=== PATIENT | female | born 1965 | race Hispanic/Latino ===

== ENCOUNTER 2020-11-08 14:41 | Inpatient (IN) | payer MEDICAID, OTHER ==
[2020-11-08] MEDS ORDERED: methylPREDNISolone Sod Succinate 125 MG/2 ML INJ IV ONE (17:02)
[2020-11-08] MEDS ORDERED: IPRATROPIUM/ALBUTEROL SULFATE 3 ML AMPUL.NEB IH ONE ×2 (17:02→22:09)
--- NOTE | 2020-11-08 17:06 | Event Note ---
ED Screening Note Date of service: 11/08/20 Time: 17:04 ED Screening Note: 55-year-old female with a past medical history of COPD presents to the ER today with complaints of increased shortness of breath for the past 3 to 4 days. She reports associated cough, wheezing, low-grade fever of 99.5, rhinorrhea, nasal congestion, sore throat, wheezing and chest tightness. She also complains of a rash to her lower abdomen and buttocks area which she noticed a few days ago and has been pruritic in nature. She admits that she used to be on oxygen but has been on oxygen in the past 5 to 6 years due to her noncompliance with follow-up and a history of drug abuse she has been in longterm. She has also been out of her inhalers and nebulizer treatments for of about 2 years She is currently in rehab for her drug abuse. Drug of choice was crack. She is recommending that we do not give her any narcotics or addictive medications during her visit. This initial assessment/diagnostic orders/clinical plan/treatment(s) is/are subject to change based on patients health status, clinical progression and re- assessment by fellow clinical providers in the ED. Further treatment and workup at subsequent clinical providers discretion. Patient/guardian urged not to elope from the ED as their condition may be serious if not clinically assessed and managed. Initial orders include: Dyspnea order set including nebulizer treatment and Solu-Medrol
[2020-11-08 17:36] LABS: Basophils # (Auto) 0.1 K/mm3 (0.0-0.1); Basophils % (Auto) 0.8 % (0.0-1.8); Eosinophils # (Auto) 0.2 K/mm3 (0.0-0.4); Eosinophils % (Auto) 1.8 % (0.0-4.3); Hematocrit 46.9 % (30.3-42.9); Lymphocytes # (Auto) 1.8 K/mm3 (1.2-5.4); Lymphocytes % (Auto) 18.6 % (13.4-35.0); Mean Corpuscular HGB Conc 34 % (30-34); Mean Corpuscular Volume 94 fl (79-97); Monocytes % (Auto) 10.8 % (0.0-7.3); Platelet Count 175 K/mm3 (140-440); Red Blood Count 5.02 M/mm3 (3.65-5.03); Red Cell Distribution Width 13.2 % (13.2-15.2)
--- NOTE | 2020-11-08 17:36 | XRay Report ---
CHEST 1 VIEW 11/08/2020 5:22 PM INDICATION / CLINICAL INFORMATION: Dyspnea. COMPARISON: 08/18/2019 FINDINGS: SUPPORT DEVICES: None. HEART / MEDIASTINUM: Stable. LUNGS / PLEURA: No significant pulmonary or pleural abnormality. No pneumothorax. ADDITIONAL FINDINGS: No significant additional findings. IMPRESSION: 1. No acute findings. Signer Name: Gamal Temple MD Signed: 11/08/2020 5:32 PM Workstation Name: [id number]
[2020-11-08 17:48] LABS: INR 0.93 (0.87-1.13)
[2020-11-08 17:49] LABS: Partial Thromboplastin Time 28.1 Sec. (24.2-36.6)
[2020-11-08 17:59] LABS: Alanine Aminotransferase 10 units/L (7-56); Albumin 3.9 g/dL (3.9-5); BUN/Creatinine Ratio 16; Blood Urea Nitrogen 14 mg/dL (7-17); Calcium 9.1 mg/dL (8.4-10.2); Hemolysis Index 29
[2020-11-08] MEDS ORDERED: MAGNESIUM SULFATE 2 GM/50 ML BAG IV ONE (21:54)
--- NOTE | 2020-11-08 21:58 | Emergency Department Report ---
ED Shortness of Breath HPI - General Chief Complaint: Dyspnea/Respdistress Stated Complaint: TROUBLE BREATHING/COUGH/FEVER/RASH Time Seen by Provider: 11/08/20 21:52 Source: patient Mode of arrival: Ambulatory Limitations: No Limitations - History of Present Illness Initial Comments: Patient is a 55-year-old female that presents emergency room with complaints of difficulty breathing, shortness of breath, cough, fever. Patient states that she has been going on for 1 week. Patient states her symptoms are worsening. Patient states she has history of asthma and COPD and she not take anything for it. Patient states that she also has a rash on her abdomen has been going on for 1 week. Patient states the rash itches. Patient denies pain in her ab domen. Patient denies chest pain. MD Complaint: shortness of breath, cough -: Sudden, days(s) Severity: severe Improves With: rest Worsens With: exertion Known History Of: COPD, asthma Context: medication noncompliance Associated Symptoms: fever, cough Treatments Prior to Arrival: none - Related Data Home Oxygen Therapy: No Home Medications Medication Instructions Recorded Confirmed Last Taken Baclofen 20 mg PO Q8H PRN 09/13/13 09/13/13 Unknown Citalopram [Celexa] 20 mg PO DAILY 09/13/13 09/13/13 Unknown Pregabalin [Lyrica] 150 mg PO BID 09/13/13 09/13/13 Unknown traMADoL [Ultram 50 MG tab] 50 mg PO Q8H PRN 09/13/13 09/13/13 Unknown Previous Rx's Medication Instructions Recorded Last Taken Type Naproxen [Naprosyn] 500 mg PO BID PRN 5 Days #10 tablet 12/25/19 Unknown Rx methOCARBAMOL [Robaxin TAB] 1,500 mg PO Q8H PRN #22 tablet 12/25/19 Unknown Rx Allergies Allergy/AdvReac Type Severity Reaction Status Date / Time steroids AdvReac Unknown Uncoded 09/13/13 14:28 ED Review of Systems ROS: Stated complaint: TROUBLE BREATHING/COUGH/FEVER/RASH Other details as noted in HPI Constitutional: fever. denies: chills Eyes: denies: eye pain, eye discharge, vision change ENT: denies: ear pain, throat pain Respiratory: cough, shortness of breath, SOB with exertion, SOB at rest. denies: wheezing Cardiovascular: denies: chest pain, palpitations Endocrine: no symptoms reported Gastrointestinal: denies: abdominal pain, nausea, diarrhea Genitourinary: denies: urgency, dysuria, discharge Musculoskeletal: denies: back pain, joint swelling, arthralgia Skin: as per HPI, rash. denies: lesions Neurological: denies: headache, weakness, paresthesias Psychiatric: denies: anxiety, depression Hematological/Lymphatic: denies: easy bleeding, easy bruising ED Past Medical Hx - Past Medical History Previous Medical History?: Yes Hx Psychiatric Treatment: Yes (Depresssion) Hx Asthma: Yes Hx COPD: Yes Additional medical history: Chrons. ulcerative colitis. Hep B. neuropathy - Surgical History Past Surgical History?: Yes Hx Appendectomy: Yes Additional Surgical History: hysterectomy. tonsillectomy. Cervical fusion - Social History Smoking Status: Current Every Day Smoker Substance Use Type: None - Medications Home Medications: Home Medications Medication Instructions Recorded Confirmed Last Taken Type Baclofen 20 mg PO Q8H PRN 09/13/13 09/13/13 Unknown History Citalopram [Celexa] 20 mg PO DAILY 09/13/13 09/13/13 Unknown History Pregabalin [Lyrica] 150 mg PO BID 09/13/13 09/13/13 Unknown History traMADoL [Ultram 50 MG tab] 50 mg PO Q8H PRN 09/13/13 09/13/13 Unknown History Naproxen [Naprosyn] 500 mg PO BID PRN 5 Days #10 tablet 12/25/19 Unknown Rx methOCARBAMOL [Robaxin TAB] 1,500 mg PO Q8H PRN #22 tablet 12/25/19 Unknown Rx ED Physical Exam - General Limitations: No Limitations General appearance: alert, in distress - Head Head exam: Present: atraumatic, normocephalic - Eye Eye exam: Present: normal appearance, PERRL Pupils: Present: normal accommodation - ENT ENT exam: Present: mucous membranes dry - Neck Neck exam: Present: normal inspection - Respiratory Respiratory exam: Present: respiratory distress, wheezes, accessory muscle use - Cardiovascular Cardiovascular Exam: Present: regular rate, normal rhythm. Absent: systolic murmur, diastolic murmur, rubs, gallop - GI/Abdominal GI/Abdominal exam: Present: soft, normal bowel sounds - Extremities Exam Extremities exam: Present: normal inspection - Back Exam Back exam: Present: normal inspection - Neurological Exam Neurological exam: Present: alert, oriented X3 - Psychiatric Psychiatric exam: Present: normal affect, normal mood - Skin Skin exam: Present: warm, dry, intact, normal color. Absent: rash ED Course Vital Signs 11/08/20 11/08/20 11/08/20 14:56 22:13 22:37 Temperature 99.4 F Pulse Rate 86 Pulse Rate [ 80 Bilateral Throughout] Respiratory 30 H 18 Rate Respiratory 20 Rate [Bilateral Throughout] Blood Pressure Blood Pressure 111/70 [Right] O2 Sat by Pulse 95 Oximetry 11/08/20 11/08/20 11/08/20 22:50 23:00 23:16 Temperature Pulse Rate Pulse Rate [ Bilateral Throughout] Respiratory Rate Respiratory Rate [Bilateral Throughout] Blood Pressure 101/61 109/63 109/63 Blood Pressure [Right] O2 Sat by Pulse 88 83 L Oximetry 11/08/20 23:30 Temperature Pulse Rate Pulse Rate [ Bilateral Throughout] Respiratory Rate Respiratory Rate [Bilateral Throughout] Blood Pressure 109/63 Blood Pressure [Right] O2 Sat by Pulse 85 Oximetry - Reevaluation(s) Reevaluation #1: Patient states she is feeling a little bit better. Patient's work to breathe hernadez s decreased slightly. Patient's oxygen is 83 percent on room air. Patient placed on oxygen. After oxygen placed patient's oxygen improved to 96%. Patient is on 5 L. 11/08/20 22:11 Reevaluation #2: I discussed all results with patient. I discussed plan of care with patient. Patient agrees with plan of care and admission. Patient to be admitted to the hospitalist service. 11/09/20 00:08 ED Medical Decision Making - Lab Data Result diagrams: 11/08/20 17:04 11/08/20 17:04 - EKG Data -: EKG Interpreted by Me EKG shows normal: sinus rhythm, axis, intervals, QRS complexes, ST-T waves Rate: normal - Radiology Data Radiology results: report reviewed, image reviewed interpreted by me: Chest x-ray: No pneumonia, no pneumothorax, no foreign body, no osseous findings, no acute findings CTA CHEST WITH IV CONTRAST INDICATION: Shortness of breath TECHNIQUE: Axial CT images were obtained through the chest after injection of IV contrast. Coronal oblique 2- D reconstruction images were produced. 3 plane MIP reconstruction images were produced at an independent workstation. All CTs at this facility utilize dose reduction techniques including automated exposure control, iterative reconstruction and weight based dosing when appropriate to reduce patient radiation dose to as low as reasonable achievable. COMPARISON: Chest radiograph, 11/08/2020. No prior cross-sectional imaging is available for comparison FINDINGS: No filling defects are visualized within the central or segmental pulmonary arteries to suggest pulmonary embolism. The heart is normal in size. The thoracic aorta is normal in caliber. Evaluation of the lung parenchyma demonstrates a spiculated mass in the right upper lobe measuring 1.6 x 1.4 cm. A similar smaller spiculated density is seen within the left upper lobe measuring 0.8 x 0.9 cm. There is a background of diffuse emphysematous change. Limited imaging of the upper abdomen demonstrates No evidence of acute abnormality. Bones and soft tissues: Evaluation of bony structures demonstrates a 9 mm sclerotic lesion within the left scapula. There are moderate multilevel degenerative changes throughout the thoracic spine. IMPRESSION: 1. Spiculated mass within the right upper lobe and smaller spiculated density within the left upper lobe. Findings are concerning for bronchogenic neoplasm. 2. Sclerotic lesion within the left scapula is nonspecific but could represent metastasis given the patient's suspicious lung mass. 3. No evidence of pulmonary embolism. 4. Emphysema. CHEST 1 VIEW 11/08/2020 5:22 PM INDICATION / CLINICAL INFORMATION: Dyspnea. COMPARISON: 08/18/2019 FINDINGS: SUPPORT DEVICES: None. HEART / MEDIASTINUM: Stable. LUNGS / PLEURA: No significant pulmonary or pleural abnormality. No pneumothorax. ADDITIONAL FINDINGS: No significant additional findings. IMPRESSION: 1. No acute findings. - Medical Decision Making Patient is a 55-year-old female who presents emergency room with complaints of shortness of breath, cough and fever. Patient's found to have increased work of breathing respiratory distress plan initial evaluation. Patient given medications to include Solu-Medrol, Decadron and mag. Patient continued to have low oxygen even after treatment. Patient was then placed on 5 L of oxygen and her O2 sat improved. Patient had a chest x-ray which was negative for acute finding. I personally reviewed the chest x-ray patient had a EKG which shows normal ST and no acute findings. I personally reviewed EKG. Patient had a CTA to rule out PE and it shows lung masses and no other acute findings. Patient had labs done which were essentially unremarkable. Patient admitted to the [facility] service for further evaluation treatment. Critical care time documented due to the multiple reassessments, prolonged time at the bedside, interpretation of diagnostics and labs. - Differential Diagnosis COPD exacerbation, hypoxia, shortness of breath, Covid, pneumonia, PE Critical Care Time: Yes Critical care time in (mins) excluding proc time.: 35 Critical care attestation.: If time is entered above; I have spent that time in minutes in the direct care of this critically ill patient, excluding procedure time. Critical Care Time: 35 minutes ED Disposition Clinical Impression: SOB (shortness of breath), COPD exacerbation, Lung mass Respiratory failure Qualifiers: Chronicity: acute Respiratory failure complication: hypoxia Qualified Code(s): J96.01 - Acute respiratory failure with hypoxia Fever Qualifiers: Fever type: unspecified Qualified Code(s): R50.9 - Fever, unspecified Disposition: 09 OP ADMIT IP TO THIS HOSP Is pt being admited?: Yes Does the pt Need Aspirin: No Condition: Critical Instructions: Chronic Obstructive Pulmonary Disease (ED) Time of Disposition: 00:09
--- NOTE | 2020-11-08 23:23 | Cat Scan Report ---
CTA CHEST WITH IV CONTRAST INDICATION: Shortness of breath TECHNIQUE: Axial CT images were obtained through the chest after injection of IV contrast. Coronal oblique 2-D reconstruction images were produced. 3 plane MIP reconstruction images were produced at an [employer] workstation. All CTs at this facility utilize dose reduction techniques including automated expos ure control, iterative reconstruction and weight based dosing when appropriate to reduce patient radi ation dose to as low as reasonable achievable. COMPARISON: Chest radiograph, 11/08/2020. No prior cross-sectional imaging is available for comparison FINDINGS: No filling defects are visualized within the central or segmental pulmonary arteries to suggest pulmo nary embolism. The heart is normal in size. The thoracic aorta is normal in caliber. Evaluation of the lung parenchyma demonstrates a spiculated mass in the right upper lobe measuring 1. 6 x 1.4 cm. A similar smaller spiculated density is seen within the left upper lobe measuring 0.8 x 0 .9 cm. There is a background of diffuse emphysematous change. Limited imaging of the upper abdomen demonstrates No evidence of acute abnormality. Bones and soft tissues: Evaluation of bony structures demonstrates a 9 mm sclerotic lesion within the left scapula. There are moderate multilevel degenerative changes throughout the thoracic spine. IMPRESSION: 1. Spiculated mass within the right upper lobe and smaller spiculated density within the left upper lobe. Findings are concerning for bronchogenic neoplasm. 2. Sclerotic lesion within the left scapula is nonspecific but could represent metastasis given the p atient's suspicious lung mass. 3. No evidence of pulmonary embolism. 4. Emphysema. Signer Name: Catherine Treviño MD Signed: 11/08/2020 11:19 PM Workstation Name: [id number]
--- NOTE | 2020-11-09 01:17 | History and Physical Report ---
History of Present Illness Date of examination: 11/09/20 Date of admission: 11/09/20 00:11 Chief complaint: shortness of breath History of present illness: Patient is a 55-year-old female that presents emergency room with complaints of difficulty breathing, shortness of breath, cough, fever. Patient states that she has been going on for 1 week. Patient states her symptoms are worsening. Patient states she has history of asthma and COPD and she not take anything for it. Patient states that she also has a rash on her abdomen has been going on for 1 week. Patient states the rash itches. Patient denies pain in her abdomen. Patient denies chest pain. ED work-up shows WBC 9.5 hemoglobin 16.0 platelets is 175, sodium is 138, potassium is 5.5, D-dimer is 45.04, creatinine is 0.9. Chest x-ray done no acute finding. Due to elevated D-dimer CT of the chest donenegative for pulmonary embolism per report showed emphysema and lung mass within the right up per lobe and small spiculated density within the left upper lobe finding concerning for bronchogenic neoplasm. Patient seen at bedside in the ED. She is alert oriented x3. She is on oxygen per nasal cannula. She reported mild shortness of breath. She admits tobacco use 1 pack daily. Discussed tobacco use cessation. Patient voiced understanding. Reviewed lab medication record and vital signs. Will consult oven baker. Past History Past Medical History: COPD Past Surgical History: appendectomy, hysterectomy, tonsillectomy Social history: smoking Family history: no significant family history Medications and Allergies Allergies Allergy/AdvReac Type Severity Reaction Status Date / Time steroids AdvReac Unknown Uncoded 09/13/13 14:28 Home Medications Medication Instructions Recorded Confirmed Last Taken Type Baclofen 20 mg PO Q8H PRN 09/13/13 11/09/20 Unknown History Citalopram [Celexa] 20 mg PO DAILY 09/13/13 11/09/20 Unknown History Pregabalin [Lyrica] 150 mg PO BID 09/13/13 11/09/20 Unknown History traMADoL [Ultram 50 MG tab] 50 mg PO Q8H PRN 09/13/13 11/09/20 Unknown History Naproxen [Naprosyn] 500 mg PO BID PRN 5 Days #10 tablet 12/25/19 11/09/20 Unknown Rx methOCARBAMOL [Robaxin TAB] 1,500 mg PO Q8H PRN #22 tablet 12/25/19 11/09/20 Unknown Rx Review of Systems Ears, nose, mouth and throat: no epistaxis, no bleeding gums Respiratory: cough, shortness of breath Gastrointestinal: no melena Rectal: no itching, no hemorrhoids Musculoskeletal: no hot joints Integumentary: no rash, no pruritis Psychiatric: anxiety, depression Hematologic/Lymphatic: no easy bruising, no easy bleeding Allergic/Immunologic: no urticaria Exam - Constitutional Vitals: Temp Pulse Resp BP Pulse Ox 99.4 F 80 18 109/63 85 11/08/20 14:56 11/08/20 22:13 11/08/20 22:37 11/08/20 23:30 11/08/20 23:30 General appearance: Present: mild distress, well-nourished - EENT Eyes: Present: PERRL ENT: hearing intact, clear oral mucosa - Neck Neck: Present: supple, normal ROM - Respiratory Respiratory effort: normal Respiratory: bilateral: CTA - Cardiovascular Heart Sounds: Present: S1 & S2. Absent: rub, click - Extremities Extremities: pulses symmetrical, No edema Peripheral Pulses: within normal limits - Abdominal General gastrointestinal: Present: soft, non-tender, non-distended, normal bowel sounds Female genitourinary: Present: normal - Integumentary Integumentary: Present: clear, warm, dry - Musculoskeletal Musculoskeletal: gait normal, strength equal bilaterally - Psychiatric Psychiatric: appropriate mood/affect, intact judgment & insight, cooperative - Neurologic Neurologic: CNII-XII intact, moves all extremities HEART Score - HEART Score Troponin: Troponin T < 0.010 ng/mL (0.00-0.029) 11/08/20 22:53 Results - Labs CBC & Chem 7: 11/08/20 17:04 11/09/20 01:55 Labs: Abnormal lab results 11/08/20 11/08/20 Range/Units 17:04 17:04 Hgb 16.0 H (10.1-14.3) gm/dl Hct 46.9 H (30.3-42.9) % [place] % (Auto) 10.8 H (0.0-7.3) % [place] # (Auto) 1.0 H (0.0-0.8) K/mm3 Potassium 5.5 H (3.6-5.0) mmol/L Assessment and Plan - Patient Problems (1) COPD exacerbation Current Visit: Yes Status: Acute Plan to address problem: Continue respiratory care Bronchodilator and oxygen supplement Rules Examiner consulted (2) Lung mass Current Visit: Yes Status: Acute Plan to address problem: Lung mass appreciated on CT of the chest Rules Examiner consults Monitor ABG and oxygen supplement (3) Respiratory failure with hypoxia Current Visit: Yes Status: Acute Plan to address problem: Hypoxia likely secondary to emphysema lung mass Continue oxygen supplements (4) Tobacco abuse Current Visit: Yes Status: Acute Plan to address problem: Patient admits tobacco use 1 pack daily discussed tobacco use cessation (5) Elevated d-dimer Current Visit: Yes Status: Acute Plan to address problem: CT of the chest is negative for PE Bilateral leg ultrasound ordered (6) DVT prophylaxis Current Visit: Yes Status: Acute Plan to address problem: Subcutaneous Lovenox
[2020-11-09 02:50] LABS: C-Reactive Protein 2.4 mg/dL (0.00-1.30)
[2020-11-09] MEDS ORDERED: MAGNESIUM HYDROXIDE (MOM) ORAL LIQD UDC PO PRN (06:34)
[2020-11-09] MEDS ORDERED: SENNOSIDES 8.6 MG TAB PO PRN (06:34)
[2020-11-09] MEDS ORDERED: ACETAMINOPHEN 325 MG TAB PO PRN (06:34)
[2020-11-09] MEDS ORDERED: ONDANSETRON 4 MG/2 ML INJ IV PRN (06:34)
[2020-11-09] MEDS ORDERED: ALUM-MAG HYDROXIDE-SIMETHICONE 200-200-20MG/5ML ORAL LIQD 30 ML PO PRN (06:34)
[2020-11-09] MEDS ORDERED: SODIUM POLYSTYRENE 15 GM/60 ML ORAL LIQD PO ONE (07:43)
[2020-11-09] MEDS: FAMOTIDINE 20 MG/2 ML INJ IV SCH ×2 (10:20→21:49)
[2020-11-09] MEDS: ENOXAPARIN 40 MG/0.4 ML INJ SUB-Q SCH (10:20)
--- NOTE | 2020-11-09 11:07 | Vascular Lab Report ---
DUPLEX DOPPLER LOWER EXTREMITY VEINS, BILATERAL INDICATION / CLINICAL INFORMATION: r/o dvt. TECHNIQUE: Duplex doppler imaging was performed through the veins of both lower extremities using venous julia aminah and other maneuvers. COMPARISON: None available. FINDINGS: RIGHT COMMON FEMORAL VEIN: Negative. RIGHT FEMORAL VEIN: Negative. RIGHT POPLITEAL VEIN: Negative. RIGHT CALF VEINS: Negative. LEFT COMMON FEMORAL VEIN: Negative. LEFT FEMORAL VEIN: Negative. LEFT POPLITEAL VEIN: Negative. LEFT CALF VEINS: Negative. ADDITIONAL FINDINGS: None. IMPRESSION: 1. No sonographic evidence for DVT in either lower extremity. Signer Name: Gamal Temple MD Signed: 11/09/2020 11:03 AM Workstation Name: [id number]
--- NOTE | 2020-11-09 14:18 | Event Note ---
Date: 11/09/20 This is the second visit after midnight Patient seen and examined Vitals noted and stable Patient does complains of shortness of breath but denies any chest pain Coarse breath sounds auscultated bilaterally, S1-S2 positive, bowel sounds positive, no leg edema 55-year-old female admitted to the hospital for shortness of breath due to COPD exacerbation and possible right lung carcinoma Continue empiric antibiotic, empiric steroid, scheduled nebulizer breathing treatment Consulted pulmonary, patient may need lung biopsy Continue current management and plan and follow pulmonary recommendation --It took me about 28 minutes to reevaluate and reasses this patient, discussed with RN/CM, review medical documents, lab results, imaging, medication list and placing order.
--- NOTE | 2020-11-09 14:27 | Consultation ---
History of Present Illness - Reason for Consult Consult date: 11/09/20 COVID-19 PUI Requesting physician: LETY VALIENTE III - History of Present Illness The patient is a 54-year-old female with COPD admitted with shortness of breath, cough for 1 week. She was noted to be hypoxic on admission. Labs revealed no leukocytosis, D-dimer 1245, ferritin 50.4, CRP 2.4, procalcitonin 0.08. COVID- 19 test is pending. She is admitted as PUI. DVT scan negative. CT chest with spiculated mass in right upper lobe and smaller spiculated density in left upper lobe suggestive of possible neoplasm. No evidence of obvious pneumonia. Review of Systems: reviewed in the chart, unable to obtain, minimize risk of transmission Past History Past Medical History: COPD Past Surgical History: appendectomy, hysterectomy, tonsillectomy Social history: smoking Family history: no significant family history Medications and Allergies Allergies Allergy/AdvReac Type Severity Reaction Status Date / Time steroids AdvReac Unknown Uncoded 09/13/13 14:28 Home Medications Medication Instructions Recorded Confirmed Last Taken Type Baclofen 20 mg PO Q8H PRN 09/13/13 11/09/20 Unknown History Citalopram [Celexa] 20 mg PO DAILY 09/13/13 11/09/20 Unknown History Pregabalin [Lyrica] 150 mg PO BID 09/13/13 11/09/20 Unknown History traMADoL [Ultram 50 MG tab] 50 mg PO Q8H PRN 09/13/13 11/09/20 Unknown History Naproxen [Naprosyn] 500 mg PO BID PRN 5 Days #10 tablet 12/25/19 11/09/20 Unknown Rx methOCARBAMOL [Robaxin TAB] 1,500 mg PO Q8H PRN #22 tablet 12/25/19 11/09/20 Unknown Rx Active Meds: Active Medications Acetaminophen (Acetaminophen 325 Mg Tab) 650 mg PO Q4H PRN PRN Reason: Pain MILD(1-3)/Fever >100.5/PADILLA Al Hydrox/Mg Hydrox/Simethicone (Alum-Mag Hydroxide-Simethicone [phone]/5ml Oral Liqd 30 Ml) 30 ml PO Q4H PRN PRN Reason: Indigestion Enoxaparin Sodium (Enoxaparin 40 Mg/0.4 Ml Inj) 40 mg SUB-Q DAILY [facility]; Protocol Last Admin: 11/09/20 10:20 Dose: 40 mg Documented by: Famotidine (Famotidine 20 Mg/2 Ml Inj) 20 mg IV BID [facility] Last Admin: 11/09/20 10:20 Dose: 20 mg Documented by: Magnesium Hydroxide (Magnesium Hydroxide (Mom) Oral Liqd Udc) 30 ml PO Q4H PRN PRN Reason: Constipation Ondansetron HCl (Ondansetron 4 Mg/2 Ml Inj) 4 mg IV Q8H PRN PRN Reason: Nausea And Vomiting Senna (Sennosides 8.6 Mg Tab) 8.6 mg PO Q12HR PRN PRN Reason: Constipation Sodium Chloride (Sodium Chloride 0.9% 10 Ml Flush Syringe) 10 ml IV BID [facility] Last Admin: 11/09/20 10:20 Dose: 10 ml Documented by: Sodium Chloride (Sodium Chloride 0.9% 10 Ml Flush Syringe) 10 ml IV PRN PRN PRN Reason: LINE FLUSH Physical Examination - Physical Exam Narrative exam: Physical Exam (reviewed in chart to minimize risk of transmission) Constitutional: deferred Head, Ears, Nose: deferred Eyes: deferred Neck: deferred Oral: deferred Cardiovascular: deferred Respiratory: deferred GI: deferred Musculoskeletal: deferred Skin: deferred Hem/Lymphatic: deferred Psych: deferred Neurological: deferred - Constitutional Vitals: Vital Signs Temp Pulse Resp BP Pulse Ox 98.5 F 68 22 106/68 96 11/09/20 12:37 11/09/20 12:37 11/09/20 12:37 11/09/20 12:37 11/09/20 12:37 Temperature -Last 24 Hours Temperature 98.5 F Temperature 98.2 F Temperature 99.4 F Results - Labs CBC & Chem 7: 11/08/20 17:04 11/09/20 01:55 Labs: Abnormal lab results 11/08/20 11/08/20 11/09/20 Range/Units 17:04 17:04 01:55 Hgb 16.0 H (10.1-14.3) gm/dl Hct 46.9 H (30.3-42.9) % [place] % (Auto) 10.8 H (0.0-7.3) % [place] # (Auto) 1.0 H (0.0-0.8) K/mm3 D-Dimer 1245.04 H (0-234) ng/mlDDU Potassium 5.5 H (3.6-5.0) mmol/L Glucose (65-100) mg/dL C-Reactive Protein (0.00-1.30) mg/dL 11/09/20 Range/Units 01:55 Hgb (10.1-14.3) gm/dl Hct (30.3-42.9) % [place] % (Auto) (0.0-7.3) % [place] # (Auto) (0.0-0.8) K/mm3 D-Dimer (0-234) ng/mlDDU Potassium (3.6-5.0) mmol/L Glucose 177 H (65-100) mg/dL C-Reactive Protein 2.40 H (0.00-1.30) mg/dL - Imaging and Cardiology Chest x-ray: report reviewed, image reviewed (no pneumonia seen.) Assessment and Plan Cultures: SARS CoV2 PCR: Pending A/P: 54-year-old female with COPD admitted with shortness of breath, cough for 1 week: #COVID-19 PUI: Pending. Inflammatory markers are not elevated. CXR without pneumonia. #Acute hypoxic respiratory failure #COPD #Spiculated lung lesion: Evaluation per primary team Recs: Follow-up COVID-19 PCR. Suspicion is low. Procalcitonin is low, antibiotics not needed Work-up for lung lesion per primary/pulmonary Marine Dobson MD, FACP [facility] ([facility] O: [phone] F: [phone]
--- NOTE | 2020-11-09 18:58 | Consultation ---
History of Present Illness Consult date: 11/09/20 Requesting physician: TIFFANIE AMBROSE Reason for consult: dyspnea History of present illness: 55 yo admitted w/ increased SOB, wheezing, cough with white sputum. No fevers, chills, chest pain, hemoptysis. Active Medications Acetaminophen (Acetaminophen 325 Mg Tab) 650 mg PO Q4H PRN PRN Reason: Pain MILD(1-3)/Fever >100.5/[place] Al Hydrox/Mg Hydrox/Simethicone (Alum-Mag Hydroxide-Simethicone [phone]/5ml Oral Liqd 30 Ml) 30 ml PO Q4H PRN PRN Reason: Indigestion Albuterol/Ipratropium (Ipratropium/Albuterol Sulfate 3 Ml Ampul.Neb) 1 ampul IH QIDRT [facility] Enoxaparin Sodium (Enoxaparin 40 Mg/0.4 Ml Inj) 40 mg SUB-Q DAILY [facility]; Protocol Last Admin: 11/09/20 10:20 Dose: 40 mg Documented by: Famotidine (Famotidine 20 Mg/2 Ml Inj) 20 mg IV BID [facility] Last Admin: 11/09/20 10:20 Dose: 20 mg Documented by: Magnesium Hydroxide (Magnesium Hydroxide (Mom) Oral Liqd Udc) 30 ml PO Q4H PRN PRN Reason: Constipation Methylprednisolone Sodium Succinate (Methylprednisolone Sod Succinate 125 Mg/2 Ml Inj) 60 mg IV Q8HR [facility] Ondansetron HCl (Ondansetron 4 Mg/2 Ml Inj) 4 mg IV Q8H PRN PRN Reason: Nausea And Vomiting Senna (Sennosides 8.6 Mg Tab) 8.6 mg PO Q12HR PRN PRN Reason: Constipation Sodium Chloride (Sodium Chloride 0.9% 10 Ml Flush Syringe) 10 ml IV BID [facility] Last Admin: 11/09/20 10:20 Dose: 10 ml Documented by: Sodium Chloride (Sodium Chloride 0.9% 10 Ml Flush Syringe) 10 ml IV PRN PRN PRN Reason: LINE FLUSH Past History Past Medical History: COPD Past Surgical History: appendectomy, hysterectomy, tonsillectomy Social history: smoking, full code. denies: alcohol abuse, prescription drug abuse, IV drug use Family history: no significant family history (no pulm issues reported) Medications and Allergies Allergies Allergy/AdvReac Type Severity Reaction Status Date / Time steroids AdvReac Unknown Uncoded 09/13/13 14:28 Home Medications Medication Instructions Recorded Confirmed Last Taken Type Baclofen 20 mg PO Q8H PRN 09/13/13 11/09/20 Unknown History Citalopram [Celexa] 20 mg PO DAILY 09/13/13 11/09/20 Unknown History Pregabalin [Lyrica] 150 mg PO BID 09/13/13 11/09/20 Unknown History traMADoL [Ultram 50 MG tab] 50 mg PO Q8H PRN 09/13/13 11/09/20 Unknown History Naproxen [Naprosyn] 500 mg PO BID PRN 5 Days #10 tablet 12/25/19 11/09/20 Unkn own Rx methOCARBAMOL [Robaxin TAB] 1,500 mg PO Q8H PRN #22 tablet 12/25/19 11/09/20 Unknown Rx Active Meds: Active Medications Acetaminophen (Acetaminophen 325 Mg Tab) 650 mg PO Q4H PRN PRN Reason: Pain MILD(1-3)/Fever >100.5/PAD[place] Al Hydrox/Mg Hydrox/Simethicone (Alum-Mag Hydroxide-Simethicone [phone]/5ml Oral Liqd 30 Ml) 30 ml PO Q4H PRN PRN Reason: Indigestion Enoxaparin Sodium (Enoxaparin 40 Mg/0.4 Ml Inj) 40 mg SUB-Q DAILY [facility]; Protocol Last Admin: 11/09/20 10:20 Dose: 40 mg Documented by: Famotidine (Famotidine 20 Mg/2 Ml Inj) 20 mg IV BID [facility] Last Admin: 11/09/20 10:20 Dose: 20 mg Documented by: Magnesium Hydroxide (Magnesium Hydroxide (Mom) Oral Liqd Udc) 30 ml PO Q4H PRN PRN Reason: Constipation Ondansetron HCl (Ondansetron 4 Mg/2 Ml Inj) 4 mg IV Q8H PRN PRN Reason: Nausea And Vomiting Senna (Sennosides 8.6 Mg Tab) 8.6 mg PO Q12HR PRN PRN Reason: Constipation Sodium Chloride (Sodium Chloride 0.9% 10 Ml Flush Syringe) 10 ml IV BID [facility] Last Admin: 11/09/20 10:20 Dose: 10 ml Documented by: Sodium Chloride (Sodium Chloride 0.9% 10 Ml Flush Syringe) 10 ml IV PRN PRN PRN Reason: LINE FLUSH Review of Systems All systems: negative Physical Examination Vital signs: Vital Signs Temp Pulse Resp BP Pulse Ox 99.4 F 86 30 H 111/70 95 11/08/20 14:56 11/08/20 14:56 11/08/20 14:56 11/08/20 14:56 11/08/20 14:56 General appearance: no acute distress, alert Eyes: non-icteric ENT: oropharynx moist Neck: supple Effort: normal Ascultation: Bilateral: wheezes (bronchospastic coughing) Cardiovascular: regular rate and rhythm (no mrg) Gastrointestinal: normoactive bowel sounds, soft, non-distended Integumentary: normal Extremities: no cyanosis, no edema, pink and warm Musculoskeletal: no deformities normal mental status, non-focal exam, pupils equal and round, CN II-XII normal mood appropriate, affect normal Results - Laboratory Findings CBC and BMP: 11/08/20 17:04 11/09/20 01:55 PT/INR, D-dimer PT 13.1 Sec. (12.2-14.9) 11/08/20 17:04 INR 0.93 (0.87-1.13) 11/08/20 17:04 D-Dimer 1245.04 ng/mlDDU (0-234) H 11/09/20 01:55 Abnormal lab findings: Abnormal Labs 11/08/20 11/08/20 11/09/20 17:04 17:04 01:55 Hgb 16.0 H Hct 46.9 H [place] % (Auto) 10.8 H [place] # (Auto) 1.0 H D-Dimer 1245.04 H Potassium 5.5 H Glucose C-Reactive Protein 11/09/20 01:55 Hgb Hct [place] % (Auto) [place] # (Auto) D-Dimer Potassium Glucose 177 H C-Reactive Protein 2.40 H - Diagnostic Findings Chest x-ray: report reviewed, image reviewed CT scan - chest: report reviewed, image reviewed Assessment and Plan Imp: 1. Centrilobular emphysema 2. COPD exac. 3. Chronic nicotine dependence, cigarettes 4. Pulm nodules 5. Acute bronchitis 6. Polycythemia Rec: 1. Add Solumedrol IV and Duonebs 2. ABX per ID 3. PAULY nodule is too small for intervention and will require f/u CT chest as outpatient 4. RUL nodule is very suspicious for primary lung malignancy; once her respiratory status improves I would check with IR to see if they are willing to do a CT guided biopsy prior to d/c; if they are not willing the best option for tissue diagnosis would be outpatient electromagnetic navigational bronchoscopy or radial EBUS (regular bronch will be low-yield); the latter procedure would likely need to be done at [place] given her lack of funding Plan of care reviewed w/ patient, she understands/agrees
[2020-11-09] MEDS: IPRATROPIUM/ALBUTEROL SULFATE 3 ML AMPUL.NEB IH SCH (20:36)
[2020-11-09] MEDS: methylPREDNISolone Sod Succinate 125 MG/2 ML INJ IV SCH (21:49)
[2020-11-10 05:44] LABS: Hematocrit 40.2 % (30.3-42.9); Hemoglobin 13.5 gm/dl (10.1-14.3); Mean Corpuscular HGB Conc 34 % (30-34); Mean Corpuscular Volume 93 fl (79-97); Platelet Count 165 K/mm3 (140-440); Red Blood Count 4.33 M/mm3 (3.65-5.03); Red Cell Distribution Width 13.3 % (13.2-15.2)
[2020-11-10] MEDS: methylPREDNISolone Sod Succinate 125 MG/2 ML INJ IV SCH ×3 (05:45→21:59)
[2020-11-10 05:56] LABS: Blood Urea Nitrogen 14 mg/dL (7-17); Calcium 8.6 mg/dL (8.4-10.2); Hemolysis Index 13
[2020-11-10 05:58] LABS: BUN/Creatinine Ratio 20
[2020-11-10 06:01] LABS: Alanine Aminotransferase 8 units/L (7-56); Albumin 3.8 g/dL (3.9-5); Blood Urea Nitrogen 14 mg/dL (7-17); Calcium 8.6 mg/dL (8.4-10.2); Hemolysis Index 4
[2020-11-10 06:02] LABS: BUN/Creatinine Ratio 20
[2020-11-10 06:29] LABS: Anisocytosis 1+; Platelet Estimate Consistent w Auto; Total Cells Counted 100
[2020-11-10] MEDS: IPRATROPIUM/ALBUTEROL SULFATE 3 ML AMPUL.NEB IH SCH ×4 (08:14→20:46)
[2020-11-10] MEDS: FAMOTIDINE 20 MG/2 ML INJ IV SCH ×2 (09:40→22:00)
[2020-11-10] MEDS: ENOXAPARIN 40 MG/0.4 ML INJ SUB-Q SCH (09:40)
--- NOTE | 2020-11-10 11:42 | Progress Note ---
Assessment and Plan 55 y/o female with acute exacerbation of COPD with bilateral upper lobe nodules, concerning for malignancy. 1. Continue steroids at current dosing, likely not ready for oral therapy yet 2. Will add BID pulmicort 3. continue schedule duonebs. 4. Will continue to follow. Subjective Date of service: 11/10/20 Interval history: No acute events. Objective Vital Signs - 12hr 11/10/20 11/10/20 04:47 08:17 Temperature 97.7 F Pulse Rate 67 Pulse Rate [ 83 Bilateral Throughout] Respiratory 18 Rate Respiratory 18 Rate [Bilateral Throughout] Blood Pressure 115/69 O2 Sat by Pulse 91 Oximetry Constitutional: no acute distress, alert Eyes: non-icteric ENT: oropharynx moist Neck: supple Effort: normal Ascultation: Bilateral: wheezes (bronchospastic coughing) Cardiovascular: regular rate and rhythm (no mrg) Gastrointestinal: normoactive bowel sounds, soft, non-distended Integumentary: normal Extremities: no cyanosis, no edema, pink and warm Neurologic: normal mental status, non-focal exam, pupils equal and round, CN II- XII normal Psychiatric: mood appropriate, affect normal CBC and BMP: 11/10/20 05:26 11/10/20 05:26 ABG, PT/INR, D-dimer: PT/INR, D-dimer PT 13.1 Sec. (12.2-14.9) 11/08/20 17:04 INR 0.93 (0.87-1.13) 11/08/20 17:04 D-Dimer 1245.04 ng/mlDDU (0-234) H 11/09/20 01:55 Abnormal lab findings: Abnormal Labs 11/08/20 11/08/20 11/09/20 17:04 17:04 01:55 WBC Hgb 16.0 H Hct 46.9 H [place] % (Auto) 10.8 H [place] # (Auto) 1.0 H Seg Neuts % (Manual) Lymphocytes % (Manual) Seg Neutrophils # Man Lymphocytes # (Manual) D-Dimer 1245.04 H Potassium 5.5 H Glucose C-Reactive Protein Albumin 11/09/20 11/10/20 11/10/20 01:55 05:26 05:26 WBC 11.8 H Hgb Hct [place] % (Auto) [place] # (Auto) Seg Neuts % (Manual) 97.0 H Lymphocytes % (Manual) 3.0 L Seg Neutrophils # Man 11.4 H Lymphocytes # (Manual) 0.4 L D-Dimer Potassium Glucose 177 H 138 H C-Reactive Protein 2.40 H Albumin 3.8 L 11/10/20 05:26 WBC Hgb Hct [place] % (Auto) [place] # (Auto) Seg Neuts % (Manual) Lymphocytes % (Manual) Seg Neutrophils # Man Lymphocytes # (Manual) D-Dimer Potassium Glucose 137 H C-Reactive Protein Albumin
--- NOTE | 2020-11-10 12:26 | Progress Note ---
Assessment and Plan Cultures: SARS CoV2 PCR: Negative A/P: 54-year-old female with COPD admitted with shortness of breath, cough for 1 week: #COVID-19 PUI: PCR negative. Inflammatory markers are not elevated. CXR without pneumonia. #Acute hypoxic respiratory failure #COPD #Spiculated lung lesion: Evaluation per primary team Recs: Leukocytosis likely secondary to steroids Work-up for lung lesion per primary/pulmonary Infectious disease will sign off, please call with questions. Jerson Metzger MD [facility] O: [phone] F: [phone] Subjective Date of service: 11/10/20 Interval history: Afebrile, white count 11.8 Covid PCR negative. Normal procalcitonin. Objective - Exam Narrative Exam: Physical exam deferred to reduce risk of transmission of COVID-19. Please refer to primary team's note. - Constitutional Vitals: Vital Signs Temp Pulse Resp BP Pulse Ox 98.4 F 85 18 107/68 89 11/10/20 11:32 11/10/20 12:22 11/10/20 12:22 11/10/20 11:32 11/10/20 11:32 Temperature -Last 24 Hours Temperature 98.4 F Temperature 98.5 F Temperature 97.7 F Temperature 98.5 F Temperature 98.6 F Temperature 98.5 F - Labs CBC & Chem 7: 11/10/20 05:26 11/10/20 05:26 Labs: Abnormal lab results 11/10/20 11/10/20 11/10/20 Range/Units 05:26 05:26 05:26 WBC 11.8 H (4.5-11.0) K/mm3 Seg Neuts % (Manual) 97.0 H (40.0-70.0) % Lymphocytes % (Manual) 3.0 L (13.4-35.0) % Seg Neutrophils # Man 11.4 H (1.8-7.7) K/mm3 Lymphocytes # (Manual) 0.4 L (1.2-5.4) K/mm3 Glucose 138 H 137 H (65-100) mg/dL Albumin 3.8 L (3.9-5) g/dL
--- NOTE | 2020-11-10 15:47 | Progress Note ---
Assessment and Plan 55-year-old female admitted to the hospital for shortness of breath due to COPD exacerbation and possible right lung carcinoma. A/P -- COPD exacerbation Continue respiratory care Bronchodilator and oxygen supplement [employer] consulted -- Lung mass Lung mass appreciated on CT of the chest [employer] consulted and recommended CT-guided biopsy when clinically much stable Monitor ABG and oxygen supplement --Acute respiratory failure with hypoxia Hypoxia likely secondary to emphysema and lung mass Continue oxygen supplements --Covid PUI, test negative --Leukocytosis, likely due to steroid-induced -- Tobacco abuse Patient admits tobacco use 1 pack daily discussed tobacco use cessation --History of cocaine abuse, counseled for cessation -- Elevated d-dimer CT of the chest is negative for PE Bilateral leg ultrasound ordered and negative for DVT -- DVT prophylaxis Subcutaneous Lovenox Daily clinical course: 11/10/20: Continue empiric steroid, antibiotic, nebulizer breathing treatment for COPD exacerbation, continue supplemental O2 and wean off as tolerated. Will consult IR for possible CT-guided biopsy of the right lung mass. If they are not willing the best option for tissue diagnosis would be outpatient electromagnetic navigational bronchoscopy or radial EBUS (regular bronch will be low-yield); the latter procedure would likely need to be done at [place] given her lack of funding. Subjective Date of service: 11/10/20 Interval history: Patient seen and examined. Medical records and medication list reviewed. No acute event overnight noted by the RN. Patient complains of difficulty breathing with very minimal exertion. Patient is tolerating diet. Discussed plan of care at bedside with patient. Objective - Exam Narrative Exam: GENERAL: Ill-looking white female lying on bed appeared to be in no discomfort. HEENT: Normocephalic. Atraumatic. No conjunctival congestion or icterus. Patient has moist mucous membranes. NECK: Supple. Trachea midline. CHEST/LUNGS: Diminished breath sound auscultated bilaterally, breathing nonlabored. Patient on 3 L nasal cannula HEART/CARDIOVASCULAR: Regular in rate and rhythm. S1 and S2 positive. ABDOMEN: Abdomen is soft, nontender. Patient has normal bowel sounds. SKIN: There is no rash. Warm and dry. NEURO: No focal motor deficit. Follows command. MUSCULOSKELETAL: No joint effusion or tenderness. EXTRIMITY: No edema, no cyanosis or clubbing. PSYCH: Cooperative. - Constitutional Vitals: Vital Signs - 12hr 11/10/20 11/10/20 11/10/20 04:47 04:53 08:17 Temperature 97.7 F 98.5 F Pulse Rate 67 80 Pulse Rate [ 83 Bilateral Throughout] Respiratory 18 20 Rate Respiratory 18 Rate [Bilateral Throughout] Blood Pressure 115/69 174/84 O2 Sat by Pulse 91 97 Oximetry 11/10/20 11/10/20 11:32 12:22 Temperature 98.4 F Pulse Rate 89 Pulse Rate [ 85 Bilateral Throughout] Respiratory 20 Rate Respiratory 18 Rate [Bilateral Throughout] Blood Pressure 107/68 O2 Sat by Pulse 89 Oximetry - Labs CBC & Chem 7: 11/10/20 05:26 11/10/20 05:26 Labs: Abnormal lab results 11/10/20 11/10/20 11/10/20 Range/Units 05:26 05:26 05:26 WBC 11.8 H (4.5-11.0) K/mm3 Seg Neuts % (Manual) 97.0 H (40.0-70.0) % Lymphocytes % (Manual) 3.0 L (13.4-35.0) % Seg Neutrophils # Man 11.4 H (1.8-7.7) K/mm3 Lymphocytes # (Manual) 0.4 L (1.2-5.4) K/mm3 Glucose 138 H 137 H (65-100) mg/dL Albumin 3.8 L (3.9-5) g/dL HEART Score - HEART Score Troponin: Troponin T < 0.010 ng/mL (0.00-0.029) 11/08/20 22:53
--- NOTE | 2020-11-11 05:05 | Progress Note ---
Assessment and Plan 55 y/o female with acute exacerbation of COPD with bilateral upper lobe nodules, concerning for malignancy. 11/11/20: Stable on 2 liters. Suggest walk test off oxygen to assess if O2 therapy is needed. Would change to prednisone 60 daily and taper as follows: 60 daily for 3 days, 40 daily for 3 days, 20 daily for 3 days, then 10 daily for 3 days then stop. Agree with my partner, please see his consult not. Given her funding she would need to have her malignancy work at [employer]. 1. Continue steroids at current dosing, likely not ready for oral therapy yet 2. Will add BID pulmicort 3. continue schedule duonebs. 4. Will continue to follow. Subjective Date of service: 11/11/20 Interval history: STable on 2 liters. Objective Vital Signs - 12hr 11/10/20 11/10/20 11/10/20 20:49 20:50 21:42 Temperature 98.9 F Pulse Rate 99 H Pulse Rate [ 93 H Bilateral Throughout] Respiratory 18 Rate Respiratory 20 Rate [Bilateral Throughout] Blood Pressure 107/64 O2 Sat by Pulse 94 91 Oximetry 11/11/20 11/11/20 00:00 04:59 Temperature 98.9 F Pulse Rate 77 Pulse Rate [ Bilateral Throughout] Respiratory 18 18 Rate Respiratory Rate [Bilateral Throughout] Blood Pressure 113/70 O2 Sat by Pulse 90 Oximetry Constitutional: no acute distress, alert Eyes: non-icteric ENT: oropharynx moist Neck: supple Effort: normal Ascultation: Bilateral: wheezes (bronchospastic coughing) Cardiovascular: regular rate and rhythm (no mrg) Gastrointestinal: normoactive bowel sounds, soft, non-distended Integumentary: normal Extremities: no cyanosis, no edema, pink and warm Neurologic: normal mental status, non-focal exam, pupils equal and round, CN II- XII normal Psychiatric: mood appropriate, affect normal CBC and BMP: 11/10/20 05:26 11/10/20 05:26 ABG, PT/INR, D-dimer: PT/INR, D-dimer PT 13.1 Sec. (12.2-14.9) 11/08/20 17:04 INR 0.93 (0.87-1.13) 11/08/20 17:04 D-Dimer 1245.04 ng/mlDDU (0-234) H 11/09/20 01:55 Abnormal lab findings: Abnormal Labs 11/08/20 11/08/20 11/09/20 17:04 17:04 01:55 WBC Hgb 16.0 H Hct 46.9 H [place] % (Auto) 10.8 H [place] # (Auto) 1.0 H Seg Neuts % (Manual) Lymphocytes % (Manual) Seg Neutrophils # Man Lymphocytes # (Manual) D-Dimer 1245.04 H Potassium 5.5 H Glucose POC Glucose C-Reactive Protein Albumin 11/09/20 11/10/20 11/10/20 01:55 05:26 05:26 WBC 11.8 H Hgb Hct [place] % (Auto) [place] # (Auto) Seg Neuts % (Manual) 97.0 H Lymphocytes % (Manual) 3.0 L Seg Neutrophils # Man 11.4 H Lymphocytes # (Manual) 0.4 L D-Dimer Potassium Glucose 177 H 138 H POC Glucose C-Reactive Protein 2.40 H Albumin 3.8 L 11/10/20 11/10/20 05:26 21:48 WBC Hgb Hct [place] % (Auto) [place] # (Auto) Seg Neuts % (Manual) Lymphocytes % (Manual) Seg Neutrophils # Man Lymphocytes # (Manual) D-Dimer Potassium Glucose 137 H POC Glucose 257 H C-Reactive Protein Albumin
[2020-11-11] MEDS: methylPREDNISolone Sod Succinate 125 MG/2 ML INJ IV SCH ×3 (06:11→22:37)
--- NOTE | 2020-11-11 07:51 | Progress Note ---
Assessment and Plan Assessment and plan: 55-year-old female admitted to the hospital for shortness of breath due to COPD exacerbation and possible right lung carcinoma. A/P -- COPD exacerbation Continue respiratory care Bronchodilator and oxygen supplement Sample Selector consulted -- Lung mass Lung mass appreciated on CT of the chest Sample Selector consulted and recommended CT-guided biopsy when clinically much stable Monitor ABG and oxygen supplement --Acute respiratory failure with hypoxia Hypoxia likely secondary to emphysema and lung mass Continue oxygen supplements --Covid PUI, test negative --Leukocytosis, likely due to steroid-induced -- Tobacco abuse Patient admits tobacco use 1 pack daily discussed tobacco use cessation --History of cocaine abuse, counseled for cessation -- Elevated d-dimer CT of the chest is negative for PE Bilateral leg ultrasound ordered and negative for DVT -- DVT prophylaxis Subcutaneous Lovenox Daily clinical course: 11/10/20: Continue empiric steroid, antibiotic, nebulizer breathing treatment for COPD exacerbation, continue supplemental O2 and wean off as tolerated. Will consult IR for possible CT-guided biopsy of the right lung mass. If they are not willing the best option for tissue diagnosis would be outpatient electromagnetic navigational bronchoscopy or radial EBUS (regular bronch will be low-yield); the latter procedure would likely need to be done at [place] given her lack of funding. 11/11/2020; continue current treatment for COPD exacerbation. Patient is on 2 L of oxygen. We will do 6-minute walk. Patient was evaluated by pulmonary. Recommended to have work-up for malignancy at [place]. Patient is not intubated. Will discharge once stable with tappering dose of steroids. History Interval history: Patient was seen and evaluated this morning Hospitalist Physical - Physical exam Narrative exam: Not in cardiopulmonary distress. The patient appeared well nourished and normally developed. Vital signs as documented. Head exam is unremarkable. No scleral icterus . Neck is without jugular venous distension, thyromegaly, or carotid bruits. Lungs are clear to auscultation. Cardiac exam reveals regular rate and Rhythm. Abdominal exam reveals normal bowel sounds, nontender, no organomegaly. Extremities are nonedematous and both femoral and pedal pulses are normal. HOUSE DECORATOR: Alert and oriented 3. No focal weakness. - Constitutional Vitals: Temp Pulse Resp BP Pulse Ox 98.9 F 77 18 113/70 90 11/11/20 04:59 11/11/20 04:59 11/11/20 04:59 11/11/20 04:59 11/11/20 04:59 General appearance: Present: mild distress, well-nourished HEART Score - HEART Score Troponin: Troponin T < 0.010 ng/mL (0.00-0.029) 11/08/20 22:53 Results - Labs CBC & Chem 7: 11/10/20 05:26 11/10/20 05:26 Labs: Laboratory Last Values WBC 11.8 K/mm3 (4.5-11.0) H 11/10/20 05:26 RBC 4.33 M/mm3 (3.65-5.03) 11/10/20 05:26 Hgb 13.5 gm/dl (10.1-14.3) 11/10/20 05:26 Hct 40.2 % (30.3-42.9) D 11/10/20 05:26 MCV 93 fl (79-97) 11/10/20 05:26 MCH 31 pg (28-32) 11/10/20 05:26 MCHC 34 % (30-34) 11/10/20 05:26 RDW 13.3 % (13.2-15.2) 11/10/20 05:26 Plt Count 165 K/mm3 (140-440) 11/10/20 05:26 Lymph % (Auto) 18.6 % (13.4-35.0) 11/08/20 17:04 [place] % (Auto) 10.8 % (0.0-7.3) H 11/08/20 17:04 Eos % (Auto) 1.8 % (0.0-4.3) 11/08/20 17:04 Baso % (Auto) 0.8 % (0.0-1.8) 11/08/20 17:04 Lymph # (Auto) 1.8 K/mm3 (1.2-5.4) 11/08/20 17:04 [place] # (Auto) 1.0 K/mm3 (0.0-0.8) H 11/08/20 17:04 Eos # (Auto) 0.2 K/mm3 (0.0-0.4) 11/08/20 17:04 Baso # (Auto) 0.1 K/mm3 (0.0-0.1) 11/08/20 17:04 Add Manual Diff Complete 11/10/20 05:26 Total Counted 100 11/10/20 05:26 Seg Neutrophils % [employer]fg [employer]oc 11/10/20 05:26 Seg Neuts % (Manual) 97.0 % (40.0-70.0) H 11/10/20 05:26 Lymphocytes % (Manual) 3.0 % (13.4-35.0) L 11/10/20 05:26 Nucleated RBC % Not Reportable 11/10/20 05:26 Seg Neutrophils # 6.4 K/mm3 (1.8-7.7) 11/08/20 17:04 Seg Neutrophils # Man 11.4 K/mm3 (1.8-7.7) H 11/10/20 05:26 Band Neutrophils # 0.0 K/mm3 11/10/20 05:26 Lymphocytes # (Manual) 0.4 K/mm3 (1.2-5.4) L 11/10/20 05:26 Abs React Lymphs (Man) 0.0 K/mm3 11/10/20 05:26 Monocytes # (Manual) 0.0 K/mm3 (0.0-0.8) 11/10/20 05:26 Eosinophils # (Manual) 0.0 K/mm3 (0.0-0.4) 11/10/20 05:26 Basophils # (Manual) 0.0 K/mm3 (0.0-0.1) 11/10/20 05:26 Metamyelocytes # 0.0 K/mm3 11/10/20 05:26 Myelocytes # 0.0 K/mm3 11/10/20 05:26 Promyelocytes # 0.0 K/mm3 11/10/20 05:26 Blast Cells # 0.0 K/mm3 11/10/20 05:26 WBC Morphology Not Reportable 11/10/20 05:26 Hypersegmented Neuts Not Reportable 11/10/20 05:26 Hyposegmented Neuts Not Reportable 11/10/20 05:26 Hypogranular Neuts Not Reportable 11/10/20 05:26 Smudge Cells Not Reportable 11/10/20 05:26 Toxic Granulation Not Reportable 11/10/20 05:26 Toxic Vacuolation Not Reportable 11/10/20 05:26 Dohle Bodies Not Reportable 11/10/20 05:26 Pelger-Huet Anomaly Not Reportable 11/10/20 05:26 Hermes Rods Not Reportable 11/10/20 05:26 Platelet Estimate Consistent w auto 11/10/20 05:26 Clumped Platelets Not Reportable 11/10/20 05:26 Plt Clumps, EDTA Not Reportable 11/10/20 05:26 Large Platelets Not Reportable 11/10/20 05:26 Giant Platelets Not Reportable 11/10/20 05:26 Platelet Satelliting Not Reportable 11/10/20 05:26 Plt Morphology Comment Not Reportable 11/10/20 05:26 RBC Morphology Not Reportable 11/10/20 05:26 Dimorphic RBCs Not Reportable 11/10/20 05:26 Polychromasia Not Reportable 11/10/20 05:26 Hypochromasia Not Reportable 11/10/20 05:26 Poikilocytosis Not Reportable 11/10/20 05:26 Anisocytosis 1+ 11/10/20 05:26 Microcytosis Not Reportable 11/10/20 05:26 Macrocytosis Not Reportable 11/10/20 05:26 Spherocytes Not Reportable 11/10/20 05:26 Pappenheimer Bodies Not Reportable 11/10/20 05:26 Sickle Cells Not Reportable 11/10/20 05:26 Target Cells Not Reportable 11/10/20 05:26 Tear Drop Cells Not Reportable 11/10/20 05:26 Ovalocytes Not Reportable 11/10/20 05:26 Helmet Cells Not Reportable 11/10/20 05:26 [place] Bodies Not Reportable 11/10/20 05:26 [place] Rings Not Reportable 11/10/20 05:26 John Cells Not Reportable 11/10/20 05:26 Bite Cells Not Reportable 11/10/20 05:26 Crenated Cell Not Reportable 11/10/20 05:26 Elliptocytes Not Reportable 11/10/20 05:26 Acanthocytes (Spur) Not Reportable 11/10/20 05:26 Rouleaux Not Reportable 11/10/20 05:26 Hemoglobin C Crystals Not Reportable 11/10/20 05:26 Schistocytes Not Reportable 11/10/20 05:26 Malaria parasites Not Reportable 11/10/20 05:26 Avila Bodies Not Reportable 11/10/20 05:26 Hem Pathologist Commnt No 11/10/20 05:26 PT 13.1 Sec. (12.2-14.9) 11/08/20 17:04 INR 0.93 (0.87-1.13) 11/08/20 17:04 APTT 28.1 Sec. (24.2-36.6) 11/08/20 17:04 D-Dimer 1245.04 ng/mlDDU (0-234) H 11/09/20 01:55 Sodium 139 mmol/L (137-145) 11/10/20 05:26 Sodium 140 mmol/L (137-145) 11/10/20 05:26 Potassium 4.0 mmol/L (3.6-5.0) D 11/10/20 05:26 Potassium 4.1 mmol/L (3.6-5.0) 11/10/20 05:26 Chloride 101.2 mmol/L (98-107) 11/10/20 05:26 Chloride 102.0 mmol/L (98-107) 11/10/20 05:26 Carbon Dioxide 28 mmol/L (22-30) 11/10/20 05:26 Carbon Dioxide 29 mmol/L (22-30) 11/10/20 05:26 Anion Gap 13 mmol/L 11/10/20 05:26 Anion Gap 14 mmol/L 11/10/20 05:26 BUN 14 mg/dL (7-17) 11/10/20 05:26 BUN 14 mg/dL (7-17) 11/10/20 05:26 Creatinine 0.7 mg/dL (0.6-1.2) 11/10/20 05:26 Creatinine 0.7 mg/dL (0.6-1.2) 11/10/20 05:26 Estimated GFR > 60 ml/min 11/10/20 05:26 Estimated GFR > 60 ml/min 11/10/20 05:26 BUN/Creatinine Ratio 20 % 11/10/20 05:26 BUN/Creatinine Ratio 20 % 11/10/20 05:26 Glucose 137 mg/dL (65-100) H 11/10/20 05:26 Glucose 138 mg/dL (65-100) H 11/10/20 05:26 POC Glucose 257 mg/dL (70-105) H 11/10/20 21:48 Hemoglobin A1c 5.7 % (4-6) 11/09/20 07:00 Calcium 8.6 mg/dL (8.4-10.2) 11/10/20 05:26 Calcium 8.6 mg/dL (8.4-10.2) 11/10/20 05:26 Magnesium 2.30 mg/dL (1.7-2.3) 11/09/20 07:00 Ferritin 50.4 ng/mL (10.0-200.0) 11/09/20 01:55 Total Bilirubin < 0.20 mg/dL (0.1-1.2) 11/10/20 05:26 AST 13 units/L (5-40) 11/10/20 05:26 ALT 8 units/L (7-56) 11/10/20 05:26 Alkaline Phosphatase 46 units/L (35-129) 11/10/20 05:26 Lactate Dehydrogenase 150 units/L (91-180) 11/09/20 01:55 Troponin T < 0.010 ng/mL (0.00-0.029) 11/08/20 22:53 C-Reactive Protein 2.40 mg/dL (0.00-1.30) H 11/09/20 01:55 Total Protein 6.4 g/dL (6.3-8.2) 11/10/20 05:26 Albumin 3.8 g/dL (3.9-5) L 11/10/20 05:26 Albumin/Globulin Ratio 1.5 % 11/10/20 05:26 Procalcitonin 0.08 ng/mL (<0.15) 11/09/20 01:55 Coronavirus (PCR) Negative (Negative) 11/09/20 09:35 Kessler/IV: Voiding Method Toilet Active Medications - Current Medications Current Medications: Generic Name Dose Route Start Last Admin Trade Name Freq PRN Reason Stop Dose Admin Acetaminophen 650 mg 11/09/20 06:34 Acetaminophen 325 Mg Tab PO Q4H PRN Pain MILD(1-3)/Fever >100.5/PADILLA Al Hydrox/Mg Hydrox/Simethicone 30 ml 11/09/20 06:34 Alum-Mag Hydroxide-Simethicone [id number]/5ml Oral Liqd 30 Ml PO Q4H PRN Indigestion Albuterol/Ipratropium 1 ampul 11/09/20 20:00 11/10/20 20:46 Ipratropium/Albuterol Sulfate 3 Ml Ampul.Neb IH 1 ampul QIDRT EVERETT Administration Budesonide 0.5 mg 11/11/20 08:00 Budesonide 0.5 Mg/2 Ml Nebu IH Q12HRT EVERETT Enoxaparin Sodium 40 mg 11/09/20 10:00 11/10/20 09:40 Enoxaparin 40 Mg/0.4 Ml Inj SUB-Q 40 mg DAILY EVERETT Administration Protocol Famotidine 20 mg 11/09/20 10:00 11/10/20 22:00 Famotidine 20 Mg/2 Ml Inj IV 20 mg BID EVERETT Administration Magnesium Hydroxide 30 ml 11/09/20 06:34 Magnesium Hydroxide (Mom) Oral Liqd Udc PO Q4H PRN Constipation Methylprednisolone Sodium Succinate 60 mg 11/09/20 20:00 11/11/20 06:11 Methylprednisolone Sod Succinate 125 Mg/2 Ml Inj IV 60 mg Q8H EVERETT Administration Ondansetron HCl 4 mg 11/09/20 06:34 Ondansetron 4 Mg/2 Ml Inj IV Q8H PRN Nausea And Vomiting Senna 8.6 mg 11/09/20 06:34 Sennosides 8.6 Mg Tab PO Q12HR PRN Constipation Sodium Chloride 10 ml 11/09/20 10:00 11/10/20 22:00 Sodium Chloride 0.9% 10 Ml Flush Syringe IV 10 ml BID EVERETT Administration Sodium Chloride 10 ml 11/09/20 06:34 Sodium Chloride 0.9% 10 Ml Flush Syringe IV PRN PRN LINE FLUSH
[2020-11-11] MEDS: BUDESONIDE 0.5 MG/2 ML NEBU IH SCH ×2 (08:13→20:36)
[2020-11-11] MEDS: IPRATROPIUM/ALBUTEROL SULFATE 3 ML AMPUL.NEB IH SCH ×3 (08:13→20:36)
[2020-11-11] MEDS: FAMOTIDINE 20 MG/2 ML INJ IV SCH ×2 (10:15→22:38)
[2020-11-11] MEDS: ENOXAPARIN 40 MG/0.4 ML INJ SUB-Q SCH (10:15)
[2020-11-11] MEDS: INSULIN LISPRO 100 UNIT/ML SUB-Q SCH (22:31)
[2020-11-11] MEDS: guaiFENesin DM 200/20 MG ORAL LIQD 10 ML PO PRN (23:07)
[2020-11-12] MEDS: methylPREDNISolone Sod Succinate 125 MG/2 ML INJ IV SCH ×2 (05:33→11:49)
[2020-11-12] MEDS: guaiFENesin DM 200/20 MG ORAL LIQD 10 ML PO PRN (07:18)
[2020-11-12] MEDS: IPRATROPIUM/ALBUTEROL SULFATE 3 ML AMPUL.NEB IH SCH ×2 (08:01→14:30)
[2020-11-12] MEDS: BUDESONIDE 0.5 MG/2 ML NEBU IH SCH (08:30)
[2020-11-12] MEDS ORDERED: FAMOTIDINE 20 MG TAB PO SCH (10:00)
[2020-11-12] MEDS: ENOXAPARIN 40 MG/0.4 ML INJ SUB-Q SCH (11:50)
[2020-11-12] MEDS: INSULIN LISPRO 100 UNIT/ML SUB-Q SCH ×3 (11:50→15:29)
[2020-11-12] MEDS: FAMOTIDINE 20 MG/2 ML INJ IV SCH (11:53)
--- NOTE | 2020-11-12 11:57 | Progress Note ---
Assessment and Plan Assessment and plan: 55-year-old female admitted to the hospital for shortness of breath due to COPD exacerbation and possible right lung carcinoma. A/P -- COPD exacerbation Continue respiratory care Bronchodilator and oxygen supplement Pulp Cooker consulted -- Lung mass Lung mass appreciated on CT of the chest Pulp Cooker consulted and recommended CT-guided biopsy when clinically much stable Monitor ABG and oxygen supplement --Acute respiratory failure with hypoxia Hypoxia likely secondary to emphysema and lung mass Continue oxygen supplements --Covid PUI, test negative --Leukocytosis, likely due to steroid-induced -- Tobacco abuse Patient admits tobacco use 1 pack daily discussed tobacco use cessation --History of cocaine abuse, counseled for cessation -- Elevated d-dimer CT of the chest is negative for PE Bilateral leg ultrasound ordered and negative for DVT -- DVT prophylaxis Subcutaneous Lovenox Daily clinical course: 11/10/20: Continue empiric steroid, antibiotic, nebulizer breathing treatment for COPD exacerbation, continue supplemental O2 and wean off as tolerated. Will consult IR for possible CT-guided biopsy of the right lung mass. If they are not willing the best option for tissue diagnosis would be outpatient electromagnetic navigational bronchoscopy or radial EBUS (regular bronch will be low-yield); the latter procedure would likely need to be done at [place] given her lack of funding. 11/11/2020; continue current treatment for COPD exacerbation. Patient is on 2 L of oxygen. We will do 6-minute walk. Patient was evaluated by pulmonary. Recommended to have work-up for malignancy at [facility]. Patient is not intubated. Will discharge once stable with tappering dose of steroids. 11/12/2020; continue current treatment for COPD exacerbation. Patient was on 2 L of oxygen. 6-minute walk was done and her oxygen saturation dropped to 88%. Discussed with case management to arrange home oxygen. Patient can be discha rged once home oxygen is arranged. History Interval history: Patient was seen and evaluated this morning Patient was complaining left-sided chest pain that started yesterday afternoon Hospitalist Physical - Physical exam Narrative exam: Not in cardiopulmonary distress. The patient appeared well nourished and normally developed. Vital signs as documented. Head exam is unremarkable. No scleral icterus . Neck is without jugular venous distension, thyromegaly, or carotid bruits. Lungs are clear to auscultation. Cardiac exam reveals regular rate and Rhythm. Abdominal exam reveals normal bowel sounds, nontender, no organomegaly. Extremities are nonedematous and both femoral and pedal pulses are normal. 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 No focal weakness. - Constitutional Vitals: Temp Pulse Resp BP Pulse Ox 97.9 F 77 18 140/86 94 11/12/20 05:24 11/12/20 08:05 11/12/20 08:05 11/12/20 05:24 11/12/20 09:49 General appearance: Present: mild distress, well-nourished HEART Score - HEART Score Troponin: Troponin T < 0.010 ng/mL (0.00-0.029) 11/08/20 22:53 Results - Labs CBC & Chem 7: 11/10/20 05:26 11/10/20 05:26 Labs: Laboratory Last Values WBC 11.8 K/mm3 (4.5-11.0) H 11/10/20 05:26 RBC 4.33 M/mm3 (3.65-5.03) 11/10/20 05:26 Hgb 13.5 gm/dl (10.1-14.3) 11/10/20 05:26 Hct 40.2 % (30.3-42.9) D 11/10/20 05:26 MCV 93 fl (79-97) 11/10/20 05:26 MCH 31 pg (28-32) 11/10/20 05:26 MCHC 34 % (30-34) 11/10/20 05:26 RDW 13.3 % (13.2-15.2) 11/10/20 05:26 Plt Count 165 K/mm3 (140-440) 11/10/20 05:26 Lymph % (Auto) 18.6 % (13.4-35.0) 11/08/20 17:04 [place] % (Auto) 10.8 % (0.0-7.3) H 11/08/20 17:04 Eos % (Auto) 1.8 % (0.0-4.3) 11/08/20 17:04 Baso % (Auto) 0.8 % (0.0-1.8) 11/08/20 17:04 Lymph # (Auto) 1.8 K/mm3 (1.2-5.4) 11/08/20 17:04 [place] # (Auto) 1.0 K/mm3 (0.0-0.8) H 11/08/20 17:04 Eos # (Auto) 0.2 K/mm3 (0.0-0.4) 11/08/20 17:04 Baso # (Auto) 0.1 K/mm3 (0.0-0.1) 11/08/20 17:04 Add Manual Diff Complete 11/10/20 05:26 Total Counted 100 11/10/20 05:26 Seg Neutrophils % Director [employer] Sessions 11/10/20 05:26 Seg Neuts % (Manual) 97.0 % (40.0-70.0) H 11/10/20 05:26 Lymphocytes % (Manual) 3.0 % (13.4-35.0) L 11/10/20 05:26 Nucleated RBC % Not Reportable 11/10/20 05:26 Seg Neutrophils # 6.4 K/mm3 (1.8-7.7) 11/08/20 17:04 Seg Neutrophils # Man 11.4 K/mm3 (1.8-7.7) H 11/10/20 05:26 Band Neutrophils # 0.0 K/mm3 11/10/20 05:26 Lymphocytes # (Manual) 0.4 K/mm3 (1.2-5.4) L 11/10/20 05:26 Abs React Lymphs (Man) 0.0 K/mm3 11/10/20 05:26 Monocytes # (Manual) 0.0 K/mm3 (0.0-0.8) 11/10/20 05:26 Eosinophils # (Manual) 0.0 K/mm3 (0.0-0.4) 11/10/20 05:26 Basophils # (Manual) 0.0 K/mm3 (0.0-0.1) 11/10/20 05:26 Metamyelocytes # 0.0 K/mm3 11/10/20 05:26 Myelocytes # 0.0 K/mm3 11/10/20 05:26 Promyelocytes # 0.0 K/mm3 11/10/20 05:26 Blast Cells # 0.0 K/mm3 11/10/20 05:26 WBC Morphology Not Reportable 11/10/20 05:26 Hypersegmented Neuts Not Reportable 11/10/20 05:26 Hyposegmented Neuts Not Reportable 11/10/20 05:26 Hypogranular Neuts Not Reportable 11/10/20 05:26 Smudge Cells Not Reportable 11/10/20 05:26 Toxic Granulation Not Reportable 11/10/20 05:26 Toxic Vacuolation Not Reportable 11/10/20 05:26 Dohle Bodies Not Reportable 11/10/20 05:26 Pelger-Huet Anomaly Not Reportable 11/10/20 05:26 Hermes Rods Not Reportable 11/10/20 05:26 Platelet Estimate Consistent w auto 11/10/20 05:26 Clumped Platelets Not Reportable 11/10/20 05:26 Plt Clumps, EDTA Not Reportable 11/10/20 05:26 Large Platelets Not Reportable 11/10/20 05:26 Giant Platelets Not Reportable 11/10/20 05:26 Platelet Satelliting Not Reportable 11/10/20 05:26 Plt Morphology Comment Not Reportable 11/10/20 05:26 RBC Morphology Not Reportable 11/10/20 05:26 Dimorphic RBCs Not Reportable 11/10/20 05:26 Polychromasia Not Reportable 11/10/20 05:26 Hypochromasia Not Reportable 11/10/20 05:26 Poikilocytosis Not Reportable 11/10/20 05:26 Anisocytosis 1+ 11/10/20 05:26 Microcytosis Not Reportable 11/10/20 05:26 Macrocytosis Not Reportable 11/10/20 05:26 Spherocytes Not Reportable 11/10/20 05:26 Pappenheimer Bodies Not Reportable 11/10/20 05:26 Sickle Cells Not Reportable 11/10/20 05:26 Target Cells Not Reportable 11/10/20 05:26 Tear Drop Cells Not Reportable 11/10/20 05:26 Ovalocytes Not Reportable 11/10/20 05:26 Helmet Cells Not Reportable 11/10/20 05:26 [place]ared[place] Bodies Not Reportable 11/10/20 05:26 [place] Rings Not Reportable 11/10/20 05:26 John Cells Not Reportable 11/10/20 05:26 Bite Cells Not Reportable 11/10/20 05:26 Crenated Cell Not Reportable 11/10/20 05:26 Elliptocytes Not Reportable 11/10/20 05:26 Acanthocytes (Spur) Not Reportable 11/10/20 05:26 Rouleaux Not Reportable 11/10/20 05:26 Hemoglobin C Crystals Not Reportable 11/10/20 05:26 Schistocytes Not Reportable 11/10/20 05:26 Malaria parasites Not Reportable 11/10/20 05:26 Avila Bodies Not Reportable 11/10/20 05:26 Hem Pathologist Commnt No 11/10/20 05:26 PT 13.1 Sec. (12.2-14.9) 11/08/20 17:04 INR 0.93 (0.87-1.13) 11/08/20 17:04 APTT 28.1 Sec. (24.2-36.6) 11/08/20 17:04 D-Dimer 1245.04 ng/mlDDU (0-234) H 11/09/20 01:55 Sodium 139 mmol/L (137-145) 11/10/20 05:26 Sodium 140 mmol/L (137-145) 11/10/20 05:26 Potassium 4.0 mmol/L (3.6-5.0) D 11/10/20 05:26 Potassium 4.1 mmol/L (3.6-5.0) 11/10/20 05:26 Chloride 101.2 mmol/L (98-107) 11/10/20 05:26 Chloride 102.0 mmol/L (98-107) 11/10/20 05:26 Carbon Dioxide 28 mmol/L (22-30) 11/10/20 05:26 Carbon Dioxide 29 mmol/L (22-30) 11/10/20 05:26 Anion Gap 13 mmol/L 11/10/20 05:26 Anion Gap 14 mmol/L 11/10/20 05:26 BUN 14 mg/dL (7-17) 11/10/20 05:26 BUN 14 mg/dL (7-17) 11/10/20 05:26 Creatinine 0.7 mg/dL (0.6-1.2) 11/10/20 05:26 Creatinine 0.7 mg/dL (0.6-1.2) 11/10/20 05:26 Estimated GFR > 60 ml/min 11/10/20 05:26 Estimated GFR > 60 ml/min 11/10/20 05:26 BUN/Creatinine Ratio 20 % 11/10/20 05:26 BUN/Creatinine Ratio 20 % 11/10/20 05:26 Glucose 137 mg/dL (65-100) H 11/10/20 05:26 Glucose 138 mg/dL (65-100) H 11/10/20 05:26 POC Glucose 118 mg/dL (70-105) H 11/12/20 08:16 Hemoglobin A1c 5.7 % (4-6) 11/09/20 07:00 Calcium 8.6 mg/dL (8.4-10.2) 11/10/20 05:26 Calcium 8.6 mg/dL (8.4-10.2) 11/10/20 05:26 Magnesium 2.30 mg/dL (1.7-2.3) 11/09/20 07:00 Ferritin 50.4 ng/mL (10.0-200.0) 11/09/20 01:55 Total Bilirubin < 0.20 mg/dL (0.1-1.2) 11/10/20 05:26 AST 13 units/L (5-40) 11/10/20 05:26 ALT 8 units/L (7-56) 11/10/20 05:26 Alkaline Phosphatase 46 units/L (35-129) 11/10/20 05:26 Lactate Dehydrogenase 150 units/L (91-180) 11/09/20 01:55 Troponin T < 0.010 ng/mL (0.00-0.029) 11/08/20 22:53 C-Reactive Protein 2.40 mg/dL (0.00-1.30) H 11/09/20 01:55 Total Protein 6.4 g/dL (6.3-8.2) 11/10/20 05:26 Albumin 3.8 g/dL (3.9-5) L 11/10/20 05:26 Albumin/Globulin Ratio 1.5 % 11/10/20 05:26 Procalcitonin 0.08 ng/mL (<0.15) 11/09/20 01:55 Coronavirus (PCR) Negative (Negative) 11/09/20 09:35 Kessler/IV: Voiding Method Toilet Active Medications - Current Medications Current Medications: Generic Name Dose Route Start Last Admin Trade Name Freq PRN Reason Stop Dose Admin Acetaminophen 650 mg 11/09/20 06:34 Acetaminophen 325 Mg Tab PO Q4H PRN Pain MILD(1-3)/Fever >100.5/PADILLA Al Hydrox/Mg Hydrox/Simethicone 30 ml 11/09/20 06:34 Alum-Mag Hydroxide-Simethicone [id number]/5ml Oral Liqd 30 Ml PO Q4H PRN Indigestion Albuterol/Ipratropium 1 ampul 11/11/20 14:00 11/12/20 08:01 Ipratropium/Albuterol Sulfate 3 Ml Ampul.Neb IH 1 ampul TIDRT EVERETT Administration Budesonide 0.5 mg 11/11/20 08:00 11/11/20 20:36 Budesonide 0.5 Mg/2 Ml Nebu IH 0.5 mg Q12HRT EVERETT Administration Enoxaparin Sodium 40 mg 11/09/20 10:00 11/12/20 11:50 Enoxaparin 40 Mg/0.4 Ml Inj SUB-Q 40 mg DAILY EVERETT Administration Protocol Famotidine 20 mg 11/12/20 10:00 11/12/20 11:50 Famotidine 20 Mg Tab PO 20 mg BID EVERETT Administration Guaifenesin 10 ml 11/11/20 22:46 11/12/20 07:18 Guaifenesin Dm 200/20 Mg Oral Liqd 10 Ml PO 10 ml Q8H PRN Administration Cough Insulin Human Lispro 0 unit 11/11/20 22:00 11/12/20 11:50 Insulin Lispro 100 Unit/Ml SUB-Q Not Given ACHS [facility] Protocol Magnesium Hydroxide 30 ml 11/09/20 06:34 Magnesium Hydroxide (Mom) Oral Liqd Udc PO Q4H PRN Constipation Methylprednisolone Sodium Succinate 60 mg 11/09/20 20:00 11/12/20 11:49 Methylprednisolone Sod Succinate 125 Mg/2 Ml Inj IV 60 mg Q8H EVERETT Administration Ondansetron HCl 4 mg 11/09/20 06:34 Ondansetron 4 Mg/2 Ml Inj IV Q8H PRN Nausea And Vomiting Senna 8.6 mg 11/09/20 06:34 Sennosides 8.6 Mg Tab PO Q12HR PRN Constipation Sodium Chloride 10 ml 11/09/20 10:00 11/12/20 11:53 Sodium Chloride 0.9% 10 Ml Flush Syringe IV 10 ml BID EVERETT Administration Sodium Chloride 10 ml 11/09/20 06:34 Sodium Chloride 0.9% 10 Ml Flush Syringe IV PRN PRN LINE FLUSH
--- NOTE | 2020-11-12 13:22 | Discharge Summary ---
Providers - Providers Date of Admission: 11/10/20 13:28 Date of discharge: 11/12/20 Attending physician: CARSON EDWARD MD 11/09/20 00:11 Consult to Physician [CONS] Routine Comment: Consulting Provider: KENTRELL WHITMORE Physician Instructions: Reason For Exam: pui 11/09/20 06:27 Consult to Physician [CONS] Stat Comment: Consulting Provider: MARIANELA RINCON Physician Instructions: Reason For Exam: hypoxia 11/12/20 07:32 Consult to Case Management [CONS] Routine Services Needed at Discharge: Home O2 Notified:: cm 11/12/20 07:33 Physical Therapy Evaluation and Treat [CONS] Routine Comment: Reason For Exam: Evaluate and treat 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 Patient states that she has been going on for 1 week. Patient states her symptoms are worsening. Patient states she has history of asthma and COPD and she not take anything for it. Patient states that she also has a rash on her abdomen has been going on for 1 week. Patient states the rash itches. Patient denies pain in her abdomen. Patient denies chest pain. ED work-up shows WBC 9.5 hemoglobin 16.0 platelets is 175, sodium is 138, potassium is 5.5, D-dimer is 45.04, creatinine is 0.9. Chest x-ray done no acute finding. Due to elevated D-dimer CT of the chest donenegative for pulmonary embolism per report showed emphysema and lung mass within the right upper lobe and small spiculated density within the left upper lobe finding concerning for bronchogenic neoplasm. Patient seen at bedside in the ED. She is alert oriented x3. She is on oxygen per nasal cannula. She reported mild shortness of breath. She admits tobacco use 1 pack daily. Discussed tobacco use cessation. Patient voiced understanding. Reviewed lab medication record and vital signs. Will consult computer bookkeeper. Hospital course 55-year-old female admitted to the hospital for shortness of breath due to COPD exacerbation and possible right lung carcinoma. 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 -- Lung mass Lung mass appreciated on CT of the chest Assembler Installer Structures consulted and recommended CT-guided biopsy when clinically much stable Monitor ABG and oxygen supplement --Acute respiratory failure with hypoxia Hypoxia likely secondary to emphysema and lung mass Continue oxygen supplements --Covid PUI, test negative --Leukocytosis, likely due to steroid-induced -- Tobacco abuse Patient admits tobacco use 1 pack daily discussed tobacco use cessation --History of cocaine abuse, counseled for cessation -- Elevated d-dimer CT of the chest is negative for PE Bilateral leg ultrasound ordered and negative for DVT -- DVT prophylaxis Subcutaneous Lovenox Daily clinical course: 11/10/20: Continue empiric steroid, antibiotic, nebulizer breathing treatment for COPD exacerbation, continue supplemental O2 and wean off as tolerated. Will consult IR for possible CT-guided biopsy of the right lung mass. If they are not willing the best option for tissue diagnosis would be outpatient electromagnetic navigational bronchoscopy or radial EBUS (regular bronch will be low-yield); the latter procedure would likely need to be done at [place] given her lack of funding. 11/11/2020; continue current treatment for COPD exacerbation. Patient is on 2 L of oxygen. We will do 6-minute walk. Patient was evaluated by pulmonary. Recommended to have work-up for malignancy at [place]. Patient is not intubated. Will discharge once stable with tappering dose of steroids. 11/12/2020; continue current treatment for COPD exacerbation. Patient was on 2 L of oxygen. 6-minute walk was done and her oxygen saturation dropped to 88%. Discussed with case management to arrange home oxygen. Patient can be discharged once home oxygen is arranged. I have extensive discussion with the patient that the patient need to have outpatient electromagnetic navigational bronchoscopy or radial EBUS (regular bronch will be low-yield); the latter procedure would likely need to be done at [place] given her lack of funding. I have discussed with the patient in detail and she states she will go to [place]. Home oxygen arranged. CT scan is suggestive of bronchogenic pneumonia and patient understood. Pulmonary consult appreciated. Disposition: [id number] HOME UNDER [facility] Final Discharge Diagnosis (Prints w/discharge instructions): COPD exacerbation. Acute hypoxic respiratory failure. Lung mass suspected for malignancy Time spent for discharge: 35 minutes - Discharge Diagnoses (1) COPD exacerbation Status: Acute (2) Elevated d-dimer Status: Acute (3) Lung mass Status: Acute (4) Respiratory failure with hypoxia Status: Acute Core Measure Documentation - Palliative Care Palliative Care/ Comfort Measures: Not Applicable - Core Measures Any of the following diagnoses?: none Exam - Physical Exam Narrative exam: Not in cardiopulmonary distress. The patient appeared well nourished and normally developed. Vital signs as documented. Head exam is unremarkable. No scleral icterus . Neck is without jugular venous distension, thyromegaly, or carotid bruits. Lungs are clear to auscultation. Cardiac exam reveals regular rate and Rhythm. Abdominal exam reveals normal bowel sounds, nontender, no organomegaly. Extremities are nonedematous and both femoral and pedal pulses are normal. 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 No focal weakness. - Constitutional Vitals: Temp Pulse Resp BP Pulse Ox 97.9 F 77 18 140/86 94 11/12/20 05:24 11/12/20 08:05 11/12/20 08:05 11/12/20 05:24 11/12/20 09:49 Plan Activity: no restrictions Weight Bearing Status: Full Weight Bearing Diet: regular Additional Instructions: Patient advised to follow-up at [facility] for work-up of her lung mass which is suspected for malignancy. Follow up with: PRIMARY CARE, [Primary Care Provider] - 3-5 Days Prescriptions: Nebulizer and Compressor [[place] Choice Nebulizer] 1 each MC BID #1 each guaiFENesin DM [Guaifenesin Dm Syrup] 10 ml PO Q8H PRN #1 oral.liqd PRN Reason: Cough predniSONE 10 mg PO QDAY #39 tab Budesonide [Pulmicort Respules] 0.5 mg IH Q12HRT #60 nebu Ipratropium/Albuterol Sulfate [DUONEB *Not for PRN Use*] 1 ampul IH TIDRT #60 ampul.neb
[2020-11-12 14:08] VITALS: BP 125/76
--- NOTE | 2020-11-13 12:53 | Electrocardiograph Report ---
[facility] Test Date: 2020-11-08 Test Time: 17:15:24 Pat Name: LENKA CHRISTIANSEN Department: Room: A3 1 Gender: F Corrections Specialist: NARCISA : 1965 Requested By: ASTER PERAZA Order Number: [id number] Reading MD: Young Gaspar Measurements Intervals [place] Rate: 73 P: 71 CO: 146 QRS: 64 QRSD: 81 T: 55 QT: 375 QTc: 414 Interpretive Statements Sinus rhythm Probable left atrial enlargement No previous ECG available for comparison Electronically Signed On 11-13-2020 12:53:13 EDT by Young Gaspar
== END 2020-11-12 19:35 | disposition home health service (06) | DRG 189 ==
LOC: ED 14:41 → 3A 11-09 00:11 → OBSVTOIN 11-10 13:28
PROVIDERS: ADMIT Internal Medicine Geriatric Medicine; ATTEND Internal Medicine
DX: J96.01 Acute respiratory failure with hypoxia (principal); C34.91 Malignant neoplasm of unspecified part of right bronchus or lung; R91.8 Other nonspecific abnormal finding of lung field; Z20.822 Contact with and (suspected) exposure to COVID-19; J20.9 Acute bronchitis, unspecified; F32.9 Major depressive disorder, single episode, unspecified; G62.9 Polyneuropathy, unspecified; E87.5 Hyperkalemia; F17.210 Nicotine dependence, cigarettes, uncomplicated; D75.1 Secondary polycythemia; J43.2 Centrilobular emphysema; D72.829 Elevated white blood cell count, unspecified; T38.0X5A Adverse effect of glucocorticoids and synthetic analogues, initial encounter; Y92.89 Other specified places as the place of occurrence of the external cause; Z71.51 Drug abuse counseling and surveillance of drug abuser; Z91.19 Patient's noncompliance with other medical treatment and regimen; Z79.899 Other long term (current) drug therapy; Z79.891 Long term (current) use of opiate analgesic; Z79.01 Long term (current) use of anticoagulants; Z88.8 Allergy status to other drugs, medicaments and biological substances; Z90.710 Acquired absence of both cervix and uterus; Z98.1 Arthrodesis status; Z90.49 Acquired absence of other specified parts of digestive tract; J45.909 Unspecified asthma, uncomplicated
CPT/HCPCS: 36415; 71045; 71275; 80048; 80053; 82728; 82947; 82962; 83036; 83615; 83735; 84145; 84484; 85007; 85025; 85379; 85610; 85730; 86140; 93005; 93970; 94640; 94644; 96365; 96375; G0378; J1650; J2930; J3475; Q9967; U0003

== ENCOUNTER 2021-01-28 12:39 | Outpatient (CLI) | payer MEDICAID ==
[2021-01-28 13:40] LABS: Basophils # (Auto) 0.1 K/mm3 (0.0-0.1); Basophils % (Auto) 1.3 % (0.0-1.8); Eosinophils # (Auto) 0.2 K/mm3 (0.0-0.4); Eosinophils % (Auto) 2.6 % (0.0-4.3); Hematocrit 41.9 % (30.3-42.9); Hemoglobin 14.4 gm/dl (10.1-14.3); Lymphocytes # (Auto) 1.9 K/mm3 (1.2-5.4); Lymphocytes % (Auto) 28.2 % (13.4-35.0); Mean Corpuscular HGB Conc 34 % (30-34); Mean Corpuscular Volume 93 fl (79-97); Monocytes # (Auto) 0.3 K/mm3 (0.0-0.8); Monocytes % (Auto) 3.9 % (0.0-7.3); Platelet Count 218 K/mm3 (140-440); Red Blood Count 4.51 M/mm3 (3.65-5.03); Red Cell Distribution Width 14.7 % (13.2-15.2)
[2021-01-28 13:59] LABS: Alanine Aminotransferase 10 units/L (7-56); Albumin 3.9 g/dL (3.9-5); BUN/Creatinine Ratio 15; Blood Urea Nitrogen 12 mg/dL (7-17); Calcium 9.4 mg/dL (8.4-10.2); Chol/HDL Ratio 2.36 %; HDL Cholesterol 58 mg/dL (40-59); Hemolysis Index 7; LDL Cholesterol,Direct 76 mg/dL (50-130)
--- NOTE | 2021-01-28 13:59 | XRay Report ---
XR elbow 3+V LT INDICATION / CLINICAL INFORMATION: EFFUSION,LEFT ELBOW. COMPARISON: December 25, 2019 FINDINGS: No acute fracture. Mild humeroulnar degenerative changes. Irregularity and enthesopathy of the olecr anon. Normal alignment. No destructive osseous lesion or suspicious periosteal reaction. Impression: 1. No significant interval change. No acute findings. Signer Name: Sameer Ritchie MD Signed: 01/28/2021 1:55 PM Workstation Name: [id number]
[2021-01-28 14:04] LABS: Hepatitis C Virus Antibody Non-Reactive (NonReactive)
== END 2021-01-28 12:40 | disposition home or self-care (01) ==
LOC: XRAY 12:39
PROVIDERS: ATTEND Internal Medicine
DX: M19.022 Primary osteoarthritis, left elbow (principal); J44.9 Chronic obstructive pulmonary disease, unspecified; M54.12 Radiculopathy, cervical region; Z13.220 Encounter for screening for lipoid disorders; E55.9 Vitamin D deficiency, unspecified; Z13.1 Encounter for screening for diabetes mellitus
CPT/HCPCS: 36415; 80053; 80061; 82306; 83036; 84443; 85025; 86592; 86689; 86695; 86705; 86706; 86709; 86803

== ENCOUNTER 2021-01-30 11:35 | Outpatient (CLI) | payer MEDICAID | END 2021-01-30 11:36 | disposition home or self-care (01) | LOC: MAMMO 11:35 | PROVIDERS: ATTEND Internal Medicine | DX: Z12.31 Encounter for screening mammogram for malignant neoplasm of breast (principal) | CPT/HCPCS: 77067 ==

== ENCOUNTER 2021-02-12 10:02 | Outpatient (CLI) | payer MEDICAID ==
--- NOTE | 2021-02-12 10:59 | Mammography Report ---
DIGITAL DIAGNOSTIC MAMMOGRAM WITH CAD CONVENTIONAL, 02/12/2021 CLINICAL INFORMATION / INDICATION: Patient presents as a callback from screening mammogram for furthe r evaluation of a focal asymmetric density in the right breast. TECHNIQUE: Digital right mammographic imaging was performed. Spot compression views were obtained. This examination was interpreted with the benefit of Computer-aided Detection analysis. COMPARISON: Prior mammogram 01/30/2021 FINDINGS: Breast Density: There are scattered areas of fibroglandular density. The previously described density in the 8:00 position of the right breast does not persist on additio nal views and is compatible with overlapping fibroglandular tissue. No suspicious mammographic abnorm ality identified. IMPRESSION: 1. The previously described density is most compatible with overlapping fibroglandular tissue. No leeanne picious mammographic abnormality identified. Follow up recommendation: Routine yearly BI-RADS Category 1: Negative. A "normal" or negative report should not discourage follow up or biopsy of a clinically significant f inding. A written summary of these findings will be mailed to the patient. The patient will be entered into a mammography reporting system which will generate a reminder letter for the patient's next appointmen t at the appropriate interval. According to the [employer], yearly mammograms are recommended starting at age 40 and continuing as long as a woman is in good health. Breast MRI is recommended for women with an yaneth roximately 20-25% or greater lifetime risk of breast cancer, including women with a strong family his tory of breast or ovarian cancer and women who have been treated for Hodgkin's disease. Signer Name: Kari Gibson MD Signed: 02/12/2021 10:55 AM Workstation Name: [email or web address]
== END 2021-02-12 10:03 | disposition home or self-care (01) ==
LOC: MAMMO 10:02
PROVIDERS: ATTEND Internal Medicine
DX: R92.8 Other abnormal and inconclusive findings on diagnostic imaging of breast (principal)